=== PATIENT | male | born 1940 | race African-American/Black ===

== ENCOUNTER 2017-03-02 16:07 | Emergency (ER) | payer OTHER ==
[2017-03-02 16:30] VITALS: TEMP 97.8; BMI 26.6
[2017-03-02] MEDS ORDERED: ASPIRIN 81 MG CHEWABLE TABLETS PO ONE (16:39)
[2017-03-02] MEDS ORDERED: ASPIRIN 81 MG CHEWABLE TABLETS ONE (16:48)
[2017-03-02 16:55] LABS: BASOPHIL 0.6 % (0-2.0); EOSINOPHIL 2.2 % (0-4.5); MCH 26.7 pg (25.7-33.7); MCHC 31.8 g/dl (32.0-35.9); MEAN PLT VOLUME 11.9 fl (7.5-11.1); NEUTROPHILS 65.7 % (42.8-82.8); RDW 12.7 % (11.9-15.9); WHITE BLOOD COUNT 6.9 K/mm3 (4.0-10.0)
[2017-03-02 17:13] LABS: INR 1.08 (0.82-1.09); PROTHROMBIN TIME (PATIENT) 11.9 SEC (9.98-11.88)
[2017-03-02 17:19] LABS: ALBUMIN 3.4 g/dl (3.4-5.0); BILIRUBIN,TOTAL 0.5 mg/dL (0.2-1.0); CALCIUM 9.1 mg/dL (8.5-10.1); COCKROFT - GAULT 58.9; CREATININE 1.2 mg/dL (0.7-1.3); TOT PROT 6.7 g/dl (6.4-8.2)
[2017-03-02 17:48] LABS: TROPONIN I 5.79 ng/ml (0.00-0.05)
--- NOTE | 2017-03-02 17:48 | PDOC ---
History of Present Illness - General History Source: Patient Exam Limitations: No Limitations <Misti Cohen - Last Filed: 03/02/17 18:52> - General History Source: Patient Exam Limitations: No Limitations <Mis Ghotra - Last Filed: 03/03/17 08:59> - General Chief Complaint: Chest Pain Stated Complaint: PCP SENT/CHEST PAIN Time Seen by Provider: 03/02/17 16:28 - History of Present Illness Initial Comments: 03/02/17 18:02 The patient is a 76-year-old man, accompanied by his , with a significant past medical history of hypertension, hypercholesterolemia, coronary artery disease status post cardiac catheterization x2, diabetes mellitus and diabetic neuropathy who presents to the emergency department for further evaluation of chest pain since last night. Patient admits that he has been experiencing mild chest pains for the past month with associated shortness of breath on exertion ( walking) He states that on Tuesday, he felt a little lightheaded but ignored his symptoms then. Patient states that last night, he felt mid-epigastric chest pain , described as a burning sensation, non-radiating, constant last night for 3-4 hours with an 8-9/10 in severity. He notes associated symptoms of orthopnea, which is atypical for him, that prompted him to see his [employer] Sorter, Dr. Sam Lucas this morning, who subsequently refereed him to the ED for further evaluation. Patient is on a daily Aspirin (81 mg) daily and took his Aspirin today. Last echocardiogram and stress test was in 2016 and was abnormal, thsu patient underwent cardiac catetherization. He denies fever, chills, cough, hemoptysis, diaphoresis, headache. He denies jaw/ back pain lower extremity pain/swelling, calf tenderness/pain He denies recent travel, recent surgery, recent immobilization. Allergies: Penicillin Past Surgical History: Cardiac Catetherization Social History: No tobacco, EtOH and recreational drug use. Nut Sorter: Dr. Sam Lucas. (Misti Cohen) Past History <Misti Cohen - Last Filed: 03/02/17 18:52> - Past Medical History Cardiac Disorders: Yes Diabetes: Yes HTN: Yes - Surgical History Cardiac Surgery: Yes (STENTS) - Psycho/Social/Smoking Cessation Hx Anxiety: No Suicidal Ideation: No Smoking History: Never smoked Hx Alcohol Use: No Drug/Substance Use Hx: No Substance Use Type: None <Mis Ghotra - Last Filed: 03/03/17 08:59> - Past Medical History Allergies/Adverse Reactions: Allergies Allergy/AdvReac Type Severity Reaction Status Date / Time Penicillins Allergy Itching Verified 03/02/17 16:11 Home Medications: Ambulatory Orders Aspirin [ASA -] 81 mg PO DAILY 03/02/17 Atorvastatin Ca [Lipitor] 40 mg PO HS 03/02/17 Clopidogrel Bisulfate [Plavix -] 75 mg PO DAILY 03/02/17 Metformin HCl [Metformin HCl ER] 1,000 mg PO DAILY 03/02/17 Valsartan [Diovan] 320 mg PO DAILY 03/02/17 Review of Systems - Review of Systems Able to Perform ROS?: Yes <Misti Cohen - Last Filed: 03/02/17 18:52> <Mis Ghotra - Last Filed: 03/03/17 08:59> - Review of Systems Comments:: 03/02/17 18:02 GENERAL/CONSTITUTIONAL: No: fever, chills, weakness, loss of appetite. HEAD, EYES, EARS, NOSE AND THROAT: No: change in vision, ear pain, discharge, sore throat, throat swelling. CARDIOVASCULAR: Yes: Chest Pain. Lightheadedness. No: palpitations, syncope RESPIRATORY: Yes: Shortness of Breath. Orthopnea. No: cough, wheezing, hemoptysis, stridor. GASTROINTESTINAL: No: nausea, vomiting, abdominal cramping, diarrhea, rectal bleeding, constipation. GENITOURINARY: No: dysuria, hematuria, frequency, urgency, flank pain. MUSCULOSKELET AL: No: back pain, neck pain, joint pain, muscle swelling or pain SKIN AND BREASTS: No: lesions, pallor, rash or easy bruising. NEUROLOGIC: No: headache, vertigo, paresthesias, weakness ENDOCRINE: No: unexplained weight gain or loss HEMATOLOGIC/LYMPHATIC: No: anemia, easy bleeding, swelling nodes (Misti Cohen) *Physical Exam <Misti Cohen - Last Filed: 03/02/17 18:52> <Mis Ghotra - Last Filed: 03/03/17 08:59> - Vital Signs Last Vital Signs Temp Pulse Resp BP Pulse Ox 97.8 F 85 18 163/88 100 03/02/17 16:08 03/02/17 18:43 03/02/17 18:43 03/02/17 19:19 03/02/17 18:43 - Physical Exam Comments: 03/02/17 18:02 GENERAL: The patient is in no acute distress. HEAD: Normal with no signs of trauma. EYES: PERRLA, EOMI, sclera anicteric, conjunctiva clear. ENT: Ears normal, nares patent, oropharynx clear without exudates. Moist mucous membranes. NECK: Normal range of motion, supple without lymphadenopathy, JVD, or masses. LUNGS: Breath sounds equal, clear to auscultation bilaterally. No wheezes, and no crackles. HEART:Regular rate and rhythm, normal S1 and S2 without murmur, rub or gallop. ABDOMEN: Soft, nontender, normoactive bowel sounds. No guarding, no rebound. EXTREMITIES: Normal range of motion, +1 pitting edema, bilaterally. No clubbing or cyanosis. No erythema, or tenderness. NEUROLOGICAL: Cranial nerves II through XII grossly intact. Normal speech. No focal neurological deficits. MUSCULOSKELETAL: Back non-tender to palpation, no CVA tenderness SKIN: Warm, Dry, normal turgor, no rashes or lesions noted. (Misti Cohen) Heart Score/ECG Review <Misti Cohen - Last Filed: 03/02/17 18:52> #1 ECG reviewed & interpreted by me at: 18:14 <Mis Ghotra - Last Filed: 03/03/17 08:59> #1 03/02/17 18:14 Twelve-lead EKG was performed and reviewed by me. There is normal sinus rhythm with a normal rate of 96bpm. The axis is normal. The intervals are normal - pr: 180ms, QRS:70ms, QTc:459ms. There are no ST elevation v3, aterior t wave inversions V3 - v5. (Mis Ghotra) ED Treatment Course - LABORATORY CBC & Chemistry Diagram: 03/02/17 16:41 03/02/17 16:41 <Misti Cohen - Last Filed: 03/02/17 18:52> - LABORATORY CBC & Chemistry Diagram: 03/02/17 16:41 03/02/17 16:41 <Mis Ghotra - Last Filed: 03/03/17 08:59> - ADDITIONAL ORDERS Additional order review: 03/02/17 16:41 RBC 4.69 MCV 84.0 MCHC 31.8 L RDW 12.7 MPV 11.9 H Neutrophils % 65.7 Lymphocytes % 22.6 Monocytes % 8.9 Eosinophils % 2.2 Basophils % 0.6 - RADIOLOGY Radiology Studies Ordered: Category Date Time Status CHEST X-RAY PORTABLE* [RAD] Stat Radiology 03/02/17 16:39 Completed Radiograph Interpretation: 03/02/17 18:32 EXAM: RAD/CHEST X-RAY PORTABLE Interpreted by Dr. Aremn Marin IMPRESSION: A single frontal portable projection of the chest at 4:53 PM is submitted. The heart size is within normal limits. The lung ruiz are free of pulmonary infiltrates or pleural effusions. There are slightly increased interstitial markings consistent with chronic lung disease. There is tortuosity and calcification of the thoracic aorta and degenerative changes of the thoracic spine. (Misti Cohen) - Medications Given in the ED: ED Medications Discontinued Medications Generic Name Dose Route Start Last Admin Trade Name Freq PRN Reason Stop Dose Admin Aspirin 162 mg 03/02/17 16:39 03/02/17 16:52 Asa - PO 03/02/17 16:40 162 mg ONCE ONE Administration Clopidogrel Bisulfate 300 mg 03/02/17 19:04 03/02/17 19:24 Plavix - PO 03/02/17 19:05 300 mg ONCE ONE Administration Heparin Sodium (Porcine) 25, 500 mls @ 20 mls/hr 03/02/17 18:30 03/02/17 19:19 000 unit/ Sodium Chloride IV 20 mls/hr TITR GRAEME Administration Protocol 1,000 UNIT/HR Medical Decision Making - Critical Care Time Total Critical Care Time (minutes): 60 Critical Care Statement: The care of this patient involved high complexity decision making to prevent further life threatening deterioration of the patient 's condition and/or to evalute & treat vital organ system(s) failure or risk of failure. <Misti Cohen - Last Filed: 03/02/17 18:52> <Mis Ghotra - Last Filed: 03/03/17 08:59> - Medical Decision Making 03/02/17 18:[address] Sam Lucas. Informed that Dr. Stacy Downs is covering. Immediate response. Case was discussed. 03/02/17 18:47 Received a call from Dr. Lucas. Case was discussed. Will start transfer process to [facility]. 03/02/17 18:51 Called [facility] at (Misti Cohen) 03/02/17 17:48 A portion of this note was documented by scribe services under my direction. I have reviewed the details of the note, within reason, and agree with the documentation with the following case summary and management plan written by me. Nursing documentation reviewed and incorporated into medical decision making 76 yo M h/o CAD s/p stent x 2 in 2014 Presenting to the ER from [facility] Sorter's office due to chest pain Symptoms began yesterday, present for 2 -3 hours Pt states he feels better, symptoms resolved last night (+) shortness of breath 03/02/17 18:07 Laboratory Tests 03/02/17 03/02/17 03/02/17 16:41 16:41 16:41 WBC 6.9 Hgb 12.5 Hct 39.4 INR 1.08 Sodium 140 Potassium 3.8 Chloride 102 BUN 22 H Creatinine 1.2 Random Glucose 258 H Creatine Kinase 558 H Troponin I 5.79 H* B-Natriuretic Peptide 549.17 H 03/02/17 18:[address] Lucas Spoke with Dr Downs He will call me back 03/02/17 18:20 Unable to get to Dr Lucas Will start heparin Pt given ASA ? transfer 03/02/17 18:[address] Lucas I have sent him the EKG done in the ER for comparison to his prior EKG I am concerned about leads v3 and v4 Will transfer 03/02/17 18:56 Awaiting discussion with [facility] 03/02/17 19:32 Call placed to [facility] Still awaiting call back from [employer] [facility] from either [facility] or [facility] 03/02/17 20:[address] Cerda at [facility] Pt will go to the ER for re assessment Will go to [facility] tonight or tomorrow (Mis Ghotra) *DC/Admit/Observation/Transfer <Misti Cohen - Last Filed: 03/02/17 18:52> - Discharge Dispostion Admit: No - Transfer to Acute Care Facility Receiving Facility: [facility]. Accepting Physician:: Dr. Cerda <Mis Ghotra - Last Filed: 03/03/17 08:59> Diagnosis at time of Disposition: ACS (acute coronary syndrome) - Discharge Dispostion Disposition: TRANSFER ACUTE CARE/OTHER HOSP - Attestations Scribe Attestion: 03/02/17 18:02 Documentation prepared by Misti Cohen, acting as mobile paramedical examiner for Mis Ghotra MD. (Misti Cohen)
[2017-03-02] MEDS ORDERED: HEPARIN - 25,000 UNIT in SODIUM CHLORIDE 495 ML IV SCH (18:30)
[2017-03-02] MEDS ORDERED: HEPARIN INFUSION - 500 ML IVPB ONE (18:32)
[2017-03-02 18:47] VITALS: PULSE 85
[2017-03-02 18:50] LABS: PLATELET COUNT 103 K/MM3 (134-434); PLATELET ESTIMATE DECREASED (NORMAL)
[2017-03-02] MEDS ORDERED: CLOPIDOGREL BISULFATE 300 MG TABLET PO ONE (19:04)
[2017-03-02 19:20] VITALS: BP 163/88
[2017-03-02] MEDS ORDERED: CLOPIDOGREL BISULFATE 300 MG TABLET ONE (19:21)
--- NOTE | 2017-03-03 11:37 | EKG ---
Test Reason : Blood Pressure : / mmHG Vent. Rate : 096 BPM Atrial Rate : 096 BPM P-R Int : 180 ms QRS Dur : 070 ms QT Int : 364 ms P-R-T Axes : 063 010 -01 degrees QTc Int : 459 ms NORMAL SINUS RHYTHM POSSIBLE LEFT ATRIAL ENLARGEMENT ANTEROSEPTAL INFARCT , AGE UNDETERMINED ABNORMAL ECG NO PREVIOUS ECGS AVAILABLE Confirmed by MANUEL HUERTAS MD ([id number]) on 03/03/2017 11:36:35 AM Referred By: Confirmed By:MANUEL HUERTAS MD
== END 2017-03-02 20:56 | disposition short-term general hospital (02) ==
LOC: JER 16:07
PROC: 3E033GC Introduction of Other Therapeutic Substance into Peripheral Vein, Percutaneous Approach (ICD-10-PCS; principal; 2017-03-02)
DX: I24.9 Acute ischemic heart disease, unspecified (principal); R07.89 Other chest pain; I10 Essential (primary) hypertension; E80.0 Hereditary erythropoietic porphyria; E11.42 Type 2 diabetes mellitus with diabetic polyneuropathy; Z79.84 Long term (current) use of oral hypoglycemic drugs; I25.10 Atherosclerotic heart disease of native coronary artery without angina pectoris; Z95.5 Presence of coronary angioplasty implant and graft
CPT/HCPCS: 36415; 71010-TC; 80053; 82550; 82553; 83735; 83880; 84484; 85025; 85610; 85730; 93005; 93010; 96365; 96366; 99285-25; J1644